=== PATIENT | male | born 1970 | race Caucasian/White ===

== ENCOUNTER 2016-08-06 05:55 | Day surgery (SDC) | payer OTHER ==
[2016-08-06] MEDS ORDERED: Lactated Ringers 1,000 ML IV SCH (06:30)
[2016-08-06] MEDS ORDERED: DIPRIVAN 200 MG/20 ML IV ONE (07:44)
[2016-08-06] MEDS ORDERED: Versed 2 MG/2 ML Injection IV ONE (07:55)
[2016-08-06] MEDS ORDERED: SUBLIMAZE 100 MCG/2 ML IV ONE (07:55)
[2016-08-06 08:32] VITALS: BP 110/66; PULSE 80; O2SAT 95
--- NOTE | 2016-08-06 08:34 | OP ---
SURGERY DATE/TIME: 08/06/2016721 PREOPERATIVE DIAGNOSIS: Chronic diarrhea. POSTOPERATIVE DIAGNOSES: 1) Rectosigmoid polyp. 2) Normal colon. PROCEDURE: Colonoscopy with polypectomy. SURGEON: Dr. Lisa. ANESTHESIA: MAC. Medications given by anesthesia department. HISTORY: The patient is a 46 year-old white male patient presenting now for colonoscopy. He reports he has been having diarrhea for many months. He reports he takes 2 mg tablet twice a day to control his diarrhea. The patient was felt the need to have endoscopic evaluation. He was appraised of the risks of the procedure including risk of perforation, phlebitis, untoward reaction to medications, bleeding, and missed lesions. The patient verbalized his understanding and desired to have the procedure performed. DESCRIPTION OF PROCEDURE: The patient was given the medications by the anesthesia department. The patient had continuous pulse oximetry, ECG monitoring, intermittent blood pressure monitoring, and tidal CO2 monitoring during the examination. He was placed in the left lateral decubitus position. A digital rectal examination was performed and revealed normal anal sphincter tone and no masses and normal prostate. The flexible Olympus pediatric colonoscope was used to intubate the rectum. A view of the colon was developed sequentially to the cecum. Upon insertion and withdrawal, there was noted a polyp in the rectosigmoid area which was approximately 0.75 cm in size and this was destroyed using multiple passes with polyp forceps. Cold technique was used. There were also random biopsies obtained throughout the colon due to the patient's underlying problem with diarrhea to rule out collagenous colitis. The scope was removed from the patient who tolerated the procedure well and was sent back to OP recovery in good condition. The prep was noted to be fair to poor.
== END 2016-08-06 08:50 | disposition home or self-care (01) ==
LOC: SDC 05:55
PROVIDERS: ATTEND Family Medicine
PROC: 0DBE8ZX Excision of Large Intestine, Via Natural or Artificial Opening Endoscopic, Diagnostic (ICD-10-PCS; principal; 2016-08-06)
PROC: 0DBN8ZZ Excision of Sigmoid Colon, Via Natural or Artificial Opening Endoscopic (ICD-10-PCS; 2016-08-06)
DX: R19.7 Diarrhea, unspecified (principal); D12.7 Benign neoplasm of rectosigmoid junction
CPT/HCPCS: 00810; 36415; 82962; 88305; J2250; J2704; J3010

== ENCOUNTER 2020-12-30 06:11 | Day surgery (SDC) | payer OTHER ==
[2020-12-30] MEDS ORDERED: Lactated Ringers 1,000 ML IV SCH (06:30)
[2020-12-30] MEDS ORDERED: DIPRIVAN 200 MG/20 ML IV ONE ×2 (07:49→08:09)
[2020-12-30 09:00] VITALS: PULSE 80; O2SAT 91
[2020-12-30 09:16] VITALS: BP 130/75
--- NOTE | 2020-12-30 09:40 | OP ---
SURGERY DATE/TIME: 12/30/2020 0753 PREOPERATIVE DIAGNOSIS: History of colon polyps and change in bowel habits with diarrhea. POSTOPERATIVE DIAGNOSIS: Normal to the ascending colon with poor to adequate prep. PROCEDURE: Colonoscopy. SURGEON: Dr. Lisa. ANESTHESIA: MAC. Medications given by anesthesia department. HISTORY: The patient is a 50 year-old white male patient who is presenting now for colonoscopic evaluation. He reports he had colon polyps removed four years ago. Since that time he had begun having diarrhea issues but no blood. The patient was felt the need to have endoscopic evaluation. He was appraised of the risks of the procedure including the risk of perforation, phlebitis, untoward reaction to medication, bleeding and missed lesions. The patient verbalized his understanding and desired to have the procedure performed. DESCRIPTION OF PROCEDURE: The patient was given the medications by the anesthesia department. He had continuous pulse oximetry, ECG monitoring, intermittent blood pressure monitoring and tidal CO2 monitoring during the examination. He was placed in the left lateral decubitus position. A digital rectal examination was performed and revealed normal anal sphincter tone, no masses and normal prostate. The flexible Olympus pediatric colonoscope was used to intubate the rectum. A view of the colon was developed sequentially to the ascending colon. With technical challenges and poor prep, we were unable to get to the cecum. The evaluation was limited due to the presence of thick liquidy stool. The patient's manipulations revealed no obvious lesions that we could see. The scope was removed from the patient who tolerated the procedure well and was sent back to OP recovery in good condition. Again, the prep was noted to be poor to inadequate.
== END 2020-12-30 10:10 | disposition home or self-care (01) ==
LOC: SDC 06:11
PROVIDERS: ATTEND Family Medicine
DX: R19.4 Change in bowel habit (principal); Z86.010 Personal history of colon polyps; R19.7 Diarrhea, unspecified; Z79.899 Other long term (current) drug therapy; E11.9 Type 2 diabetes mellitus without complications; I10 Essential (primary) hypertension; J44.9 Chronic obstructive pulmonary disease, unspecified
CPT/HCPCS: 82947; J2704